=== PATIENT | male | born 1995 | race Caucasian/White ===

== ENCOUNTER 2018-11-03 23:30 | Emergency (ER) | payer SELFPAY ==
[~2018-11-03] VITALS: Ht 182.9 cm; Wt 74.4 kg
[2018-11-04 00:55] VITALS: BP 124/45
[2018-11-04] MEDS ORDERED: methylPREDNISolone SOD SUCC 125 MG/2 ML VL IM ONE (01:00)
[2018-11-04] MEDS ORDERED: cefTRIAXone SOD 1,000 MG VL IM ONE (01:00)
[2018-11-04] MEDS ORDERED: ACETAMINOPHEN/CODEINE#3 (300/30mg) TAB PO ONE (01:15)
[2018-11-04] MEDS ORDERED: Acetam/CODEINE 120mg/12mg per 5mL UD PO ONE (01:15)
== END 2018-11-04 02:11 | disposition home or self-care (01) ==
LOC: ER 23:39
DX: J06.9 Acute upper respiratory infection, unspecified (principal); R51 Headache; M79.10 Myalgia, unspecified site
CPT/HCPCS: 71046; 96372; 99283; J0696; J2930